=== PATIENT | male | born 1960 | race Caucasian/White ===

== ENCOUNTER → 2017-11-23 | Outpatient (CLI) | payer OTHER ==
[~2017-11-23] MED LIST: CEPH-312 PO; HYDR-4309 PO; LEVO750T25 PO; LISI20TA29 PO
--- NOTE | 2017-11-23 19:35 | RADIOLOGY IMAGING REPORT ---
[place] [facility] [place] NAME: Azael Carballo : 1960 MR: [id number] V: [id number] EXAM DATE: ORDERING PHYSICIAN: JUANA JAMESON TECHNOLOGIST: Location: [facility] Patient: Azael Carballo : 1960 Visit/Account:[id number] Date of Sevice: 11/23/2017 BILATERAL STANDING KNEES, KNEE 3 VIEW RIGHT, KNEE 3 VIEW LEFT Indication: Pain Comparison: None available Findings: No evidence of fracture, dislocation, or acute osseous abnormality of the right and left knees. Bilaterally, there is moderate tricompartmental degenerative joint space narrowing. Irregularities a re noted along the articular surface of the lateral compartments bilaterally. There is moderate spur ring of the tibial spines. No evidence of joint effusion bilaterally. There is no focal soft tissue abnormality. No evidence of radiopaque foreign body. IMPRESSION: 1. Moderate tricompartmental degenerative osteoarthritis greatest within the lateral compartments Report Dictated By: Levon Dalal at 11/23/2017 7:22 PM Report E-Signed By: Levon Dalal at 11/23/2017 7:31 PM WSN:[id number]
--- NOTE | 2017-11-23 19:36 | RADIOLOGY IMAGING REPORT ---
FACILITY: [facility] [place] PATIENT NAME: Azael Carballo : 1960 MR: [id number] V: [id number] EXAM DATE: ORDERING PHYSICIAN: JUANA JAMESON TECHNOLOGIST: [place] [facility] [place] Azael Carballo : 1960 Visit/Account:[id number] Date of Sevice: 11/23/2017 BILATERAL STANDING KNEES, KNEE 3 VIEW RIGHT, KNEE 3 VIEW LEFT Indication: Pain Comparison: None available Findings: No evidence of fracture, dislocation, or acute osseous abnormality of the right and left knees. Bilaterally, there is moderate tricompartmental degenerative joint space narrowing. Irregularities a re noted along the articular surface of the lateral compartments bilaterally. There is moderate spur ring of the tibial spines. No evidence of joint effusion bilaterally. There is no focal soft tissue abnormality. No evidence of radiopaque foreign body. IMPRESSION: 1. Moderate tricompartmental degenerative osteoarthritis greatest within the lateral compartments Report Dictated By: Levon Dalal at 11/23/2017 7:22 PM Report E-Signed By: Levon Dalal at 11/23/2017 7:31 PM WSN:[id number]
--- NOTE | 2017-11-23 19:36 | RADIOLOGY IMAGING REPORT ---
FACILITY: [facility] - [place] PATIENT NAME: Azael Carballo : 1960 MR: [id number] V: [id number] EXAM DATE: ORDERING PHYSICIAN: JUANA JAMESON TECHNOLOGIST: Location: [facility] [place] Patient: Azael Carballo : 1960 Visit/Account:[id number] Date of Sevice: 11/23/2017 BILATERAL STANDING KNEES, KNEE 3 VIEW RIGHT, KNEE 3 VIEW LEFT Indication: Pain Comparison: None available Findings: No evidence of fracture, dislocation, or acute osseous abnormality of the right and left knees. Bilaterally, there is moderate tricompartmental degenerative joint space narrowing. Irregularities a re noted along the articular surface of the lateral compartments bilaterally. There is moderate spur ring of the tibial spines. No evidence of joint effusion bilaterally. There is no focal soft tissue abnormality. No evidence of radiopaque foreign body. IMPRESSION: 1. Moderate tricompartmental degenerative osteoarthritis greatest within the lateral compartments Report Dictated By: Levon Dalal at 11/23/2017 7:22 PM Report E-Signed By: Levon Dalal at 11/23/2017 7:31 PM WSN:[id number]
== END ==
LOC: RAD 16:51
PROVIDERS: ATTEND Nurse Practitioner Family
DX: M17.0 Bilateral primary osteoarthritis of knee (principal)
CPT/HCPCS: 73565